=== PATIENT | female | born 1960 | race Caucasian/White ===

== ENCOUNTER 2018-03-12 23:06 | Emergency (ER) | payer OTHER ==
[2018-03-12] MEDS ORDERED: TORAdol 30 mg Injection IM ONE (23:26)
--- NOTE | 2018-03-12 23:26 | ERPHSYRPT ---
- History of Present Illness Time Seen by Provider: 03/12/18 23:21 Source: patient Exam Limitations: no limitations Physician History: The patient is a 58-year-old female who missed a step causing her to fall onto her right foot. This happened about 2 hours ago. The mid part of her right foot is hurting. It hurts for her to walk on it. She did not take Tylenol nor ibuprofen. She did not ice it. There is no numbness or tingling. Her past medical history is unremarkable. Occurred: this evening Reason for Fall: lost balance, fell from standing pos Injuries/Pain Location: lower extremity (right foot) Loss of Consciousness: no loss of consciousness Quality: aching Severity of Pain-Max: moderate Severity of Pain-Current: moderate Modifying Factors: Improves With: nothing Associated Symptoms (Fall): trouble walking Allergies/Adverse Reactions: No Known Drug Allergies Allergy (Verified 03/12/18 23:33) Hx Tetanus, Diphtheria Vaccination/Date Given: Yes (UNKNOWN) Hx Influenza Vaccination/Date Given: No Hx Pneumococcal Vaccination/Date Given: No - Review of Systems Constitutional: No Fever, No Chills Eyes: No Symptoms Ears, Nose, & Throat: No Symptoms Respiratory: No Cough, No Dyspnea Cardiac: No Chest Pain, No Edema, No Syncope Abdominal/Gastrointestinal: No Abdominal Pain, No Nausea, No Vomiting, No Diarrhea Genitourinary Symptoms: No Dysuria Musculoskeletal: Fall, Injury Skin: No Rash Neurological: No Dizziness, No Focal Weakness, No Sensory Changes Psychological: No Symptoms Endocrine: No Symptoms Hematologic/Lymphatic: No Symptoms Immunological/Allergic: No Symptoms All Other Systems: Reviewed and Negative - Past Medical History Pertinent Past Medical History: Yes Respiratory History: Asthma - Past Surgical History Past Surgical History: Yes Musculoskeletal: Orthopedic Surgery Female Surgical History: Hysterectomy, Other - Social History Smoking Status: Never smoker Exposure to second hand smoke: No Drug Use: none Patient Lives Alone: No - Nursing Vital Signs Nursing Vital Signs: Initial Vital Signs Temperature 98.1 F 03/12/18 23:16 Pulse Rate 95 H 03/12/18 23:16 Respiratory Rate 18 03/12/18 23:16 Blood Pressure 169/91 03/12/18 23:16 O2 Sat by Pulse Oximetry 96 03/12/18 23:16 Pain Scale Pain Intensity 10 - [place] Coma Score Best Eye Response ([place]): (4) open spontaneously Best Verbal Response ([place]): (5) oriented Best Motor Response ([place]): (6) obeys commands [place] Total: 15 - Physical Exam General Appearance: no apparent distress, alert Head Injury: no evidence of injury Eye Exam: PERRL/EOMI ENT Exam: airway nml Neck Exam: normal inspection, No tenderness Respiratory/Chest Exam: normal breath sounds, No chest tenderness, No respiratory distress Cardiovascular Exam: normal heart sounds, regular rate/rhythm Gastrointestinal Exam: soft, No tenderness, No distention, No guarding, No ecchymosis Rectal Exam: not done Back Exam: normal inspection, No vertebral tenderness Extremity Exam: pain with movement, weight bearing, tenderness (tenderness to mid lateral right foot) Neurologic Exam: alert, oriented x 3, cooperative, sensation nml, No motor deficits Skin Exam: abrasion (abrasion to right lateral malleolus) SpO2 Interpretation: normal Oxygen Delivery: Room Air - Radiology Exams Right Foot X-ray Interpretation: Interpreted by me, Negative, No Fracture Ordered Tests: Active Orders 24 hr Category Date Time Status Cold Application STAT Care 03/12/18 23:26 Active FOOT (MINIMUM 3 VIEWS) Routine Exams 03/12/18 23:48 Taken Medication Summary Discontinued Medications Generic Name Dose Route Start Last Admin Trade Name Freq PRN Reason Stop Dose Admin Ketorolac Tromethamine 60 mg 03/12/18 23:26 03/12/18 23:30 Toradol 30 Mg Injection IM 03/12/18 23:27 60 mg STAT ONE Administration Ketorolac Tromethamine Confirm 03/12/18 23:29 Toradol 30 Mg Injection Administered 03/12/18 23:30 Dose 60 mg .ROUTE .STK-MED ONE - Progress Progress: improved Counseled pt/family regarding: diagnosis, rad results - Departure Time of Disposition: 23:51 Departure Disposition: Home Clinical Impression: Right foot sprain Condition: Stable Critical Care Time: No Referrals: STEVEN SHANE [Primary Care Provider] - Additional Instructions: You have a sprain of your right foot. The x-ray did not show any broken bones. You were given Toradol 60 mg by IM in the ER. Continue to ice your foot as needed. Take naproxen 500 mg 2 times a day as needed. Follow-up with your primary medical doctor as needed. Prescriptions: Naproxen 500 mg PO BID PRN #30 tablet
[2018-03-12] MEDS ORDERED: TORAdol 30 mg Injection ONE (23:29)
[2018-03-13 00:04] VITALS: BP 147/91; PULSE 92; O2SAT 97
--- NOTE | 2018-03-13 09:55 | XRAY ---
Indication: Pain following fall. Comparison: None 3 nonweightbearing views of the right foot demonstrates small posterior heel spur. No other bony, articular, or soft tissue abnormalities.
== END 2018-03-13 00:06 | disposition home or self-care (01) ==
LOC: ED 23:06
DX: S93.601A Unspecified sprain of right foot, initial encounter (principal); W10.9XXA Fall (on) (from) unspecified stairs and steps, initial encounter
CPT/HCPCS: 73630; 96372; 99284; J1885

== ENCOUNTER 2019-05-19 16:11 | Emergency (ER) | payer OTHER ==
[2019-05-19 16:27] VITALS: O2SAT 98
--- NOTE | 2019-05-19 16:30 | ERPHSYRPT ---
- History of Present Illness Time Seen by Provider: 05/19/19 16:30 Source: patient Exam Limitations: no limitations Patient Subjective Stated Complaint: pt got luz ring embedded in to right 5th digit , she was able to remove in and has two puncture wounds to finger Triage Nursing Assessment: pt alert, waked in, resp easy, skin w/d/p. has two puncture wounds to right 5th digit with scant amount of bleeding,finger pink and warm to touch Physician History: This is a right-handed 59-year-old female who suffered 2 small puncture wounds on her distal right finger prior to arrival. She pinched the soft tissue portion of the distal right fifth digit in her keychain. Initially, there is bleeding present. She arrived with no bleeding present. Patient's tetanus status is not up-to-date. Timing/Duration: today Quality: painful Severity: mild Location: hands (Right distal fifth digit) Possible Causes: other (Pinched with a keychain) Associated Symptoms: denies symptoms Allergies/Adverse Reactions: No Known Drug Allergies Allergy (Verified 05/19/19 16:27) Home Medications: No Reportable Medications [No Reported Medications] 05/19/19 [History] Hx Tetanus, Diphtheria Vaccination/Date Given: Yes Hx Influenza Vaccination/Date Given: No Hx Pneumococcal Vaccination/Date Given: No Immunizations Up to Date: Yes - Review of Systems Constitutional: No Symptoms Eyes: No Symptoms Ears, Nose, & Throat: No Symptoms Respiratory: No Symptoms Cardiac: No Symptoms Abdominal/Gastrointestinal: No Symptoms Genitourinary Symptoms: No Symptoms Musculoskeletal: No Symptoms Skin: Other (2 puncture sites on right distal fifth digit) Neurological: No Symptoms Psychological: No Symptoms Endocrine: No Symptoms - Past Medical History Pertinent Past Medical History: Yes Neurological History: No Pertinent History ENT History: No Pertinent History Cardiac History: No Pertinent History Respiratory History: Asthma Endocrine Medical History: No Pertinent History Musculoskeletal History: No Pertinent History GI Medical History: No Pertinent History History: No Pertinent History Psycho-Social History: No Pertinent History Female Reproductive Disorders: No Pertinent History - Past Surgical History Past Surgical History: Yes Neuro Surgical History: No Pertinent History Cardiac: No Pertinent History Respiratory: No Pertinent History Gastrointestinal: No Pertinent History Genitourinary: No Pertinent History Musculoskeletal: Orthopedic Surgery Female Surgical History: Hysterectomy, Dilation & Curettage Other Surgical History: finger surg - Social History Smoking Status: Never smoker Exposure to second hand smoke: No Drug Use: none Patient Lives Alone: No - Female History Hx Last Menstrual Period: post Hx Now: Yes - Nursing Vital Signs Nursing Vital Signs: Initial Vital Signs Temperature 97.2 F 05/19/19 16:20 Pulse Rate 103 H 05/19/19 16:20 Respiratory Rate 16 05/19/19 16:20 Blood Pressure 174/105 05/19/19 16:20 O2 Sat by Pulse Oximetry 98 05/19/19 16:20 Pain Scale Pain Intensity 6 - Physical Exam General Appearance: no apparent distress, alert Eye Exam: PERRL/EOMI, eyes nml inspection Ears, Nose, Throat Exam: normal ENT inspection, moist mucous membranes Neck Exam: normal inspection, non-tender, supple, full range of motion Respiratory Exam: airway intact, No chest tenderness, No respiratory distress Gastrointestinal/Abdomen Exam: No tenderness Pelvic Exam: not done Rectal Exam: not done Back Exam: normal inspection, normal range of motion, No CVA tenderness, No vertebral tenderness Extremity Exam: lacerations, other (2 puncture sites laterally right fifth digit distally. No active bleeding. No foreign body. Tendon function intact. Neurovascularly intact.) Neurologic Exam: alert, oriented x 3, cooperative, director clinical pharmacology II-XII nml as tested, normal mood/affect, nml cerebellar function, nml station & gait Skin Exam: laceration (See above) SpO2 Interpretation: normal SpO2: 98 O2 Delivery: Room Air Procedures - Laceration/Wound Repair Right Distal Finger Wound Location: Right, hand (Distal fifth digit) Wound Length (cm): 0.3 Wound's Depth, Shape: linear, into subcut Wound Explored: No foreign body noted, evaluation in bloodless field. Irrigated: Yes Hibiclens Prep: Yes Wound Repaired With: Steri-strips, Dermabond Progress: 05/19/19 17:24 The wound site was irrigated with normal saline Hibiclens and cleaned again with Hibiclens solution. There is no bony involvement. It is in the fat pad where the small puncture wounds are present laterally. After discussion with the patient, we opted for benzoin, skin glue, and half-inch Steri-Strips. The patient tolerated the procedure well there were no complications. The nurse placed a pressure dressing on the site. - Course Nursing assessment & vital signs reviewed: Yes Ordered Tests: Medication Summary Discontinued Medications Generic Name Dose Route Start Last Admin Trade Name Nina PRN Reason Stop Dose Admin Diphtheria/Tetanus/Acell Pertussis 0.5 ml 05/19/19 16:54 Adacel Vial IM 05/19/19 16:55 .ONCE ONE - Progress Progress: improved Counseled pt/family regarding: diagnosis - Departure Departure Disposition: Home Clinical Impression: Finger laceration Condition: Stable Critical Care Time: No Referrals: KEIRA COX BEEF PUSHER [Primary Care Provider] - Additional Instructions: Keep current pressure dressing in place until tomorrow evening. Tomorrow evening, you may remove the pressure dressing but leave the Steri-Strips in place until they fall off in approximately 5 to 7 days. After removal of the top pressure dressing, may wash daily. Use Tylenol and ibuprofen for pain. Follow-up with your primary care physician as needed
[2019-05-19] MEDS ORDERED: Adacel Vial IM ONE (17:23)
[2019-05-19] MEDS: Adacel Vial IM ONE (17:25)
[2019-05-19 17:31] VITALS: BP 163/94; PULSE 91
== END 2019-05-19 17:43 | disposition home or self-care (01) ==
LOC: ED 16:11
DX: S61.210A Laceration without foreign body of right index finger without damage to nail, initial encounter (principal); W22.8XXA Striking against or struck by other objects, initial encounter
CPT/HCPCS: 12001; 90471; 90715; 99283

== ENCOUNTER 2019-12-07 07:58 | Day surgery (SDC) | payer OTHER ==
[~2019-12-07 07:58] MED LIST: Ak-Dilate OPHTHALMIC*** 1.065 ML, Cyclogyl 1% OPHTH SOL 5 ML 1.065 ML, GATIFLOXACIN 0.5... OP ONE; DIPRIVAN 200 MG/20 ML IV ONE; Lactated Ringers 1,000 ML IV SCH; NON-FORMULARY ITEM IJ ONE; TETRACAINE 0.5% STERI-UNIT SOL OP ONE
[2019-12-07] MEDS ORDERED: LIDOCAINE HCL 1% 50 MG/5 ML VL PF IJ ONE (07:59)
[2019-12-07] MEDS ORDERED: Epinephrine Preservative Free 1 MG/ML IJ ONE (07:59)
[2019-12-07] MEDS ORDERED: BETADINE 5% OPHTHALMIC 30 ML OP ONE (07:59)
[2019-12-07] MEDS ORDERED: Lactated Ringers 1,000 ML IV ONE (08:17)
[2019-12-07] MEDS ORDERED: ACETAZOLAMIDE 250 MG TABLET PO ONE (09:00)
[2019-12-07] MEDS ORDERED: Zofran 4 MG/2 ML VIAL IV PRN (09:00)
[2019-12-07] MEDS ORDERED: cefUROXime sodium 0.005 GM in Sodium Chloride Flush 30 ML*** 0.5 ML IJ SCH (09:00)
[2019-12-07 11:10] VITALS: O2SAT 99
[2019-12-07 11:14] VITALS: BP 149/96; PULSE 84
--- NOTE | 2019-12-08 11:19 | OP ---
DATE/TIME OF OPERATION: 12/07/2019 1017 TIME DICTATED: 12/07/2019 1314 PREOPERATIVE DIAGNOSIS: Senile cataract of left eye. POSTOPERATIVE DIAGNOSIS: Senile cataract of left eye. SURGEON: Zunilda Mae MD DELIVERY AND INSTALLATION SUBCONTRACTOR: NONE OPERATION: Cataract extraction of left eye with an intraocular lens implant STANDARD __X___ COMPLEX ANESTHESIA: ___X___ Monitored anesthesia care in combination with topical and intra-cameral anesthesia (because of the established specific risk of reflux, arrhythmias, or an anxiety attack associated with ocular manipulation as well as difficulty of the biomedical manager to manage such potentially catastrophic events while simultaneously attempting to complete the surgical procedure, it was deemed necessary for the patient's safety to have an anesthesiologist or a nurse caustic operator present during the procedure whenever possible. The anesthesiologist or the nurse caustic operator was utilized to monitor and regulate the intravenous sedation of the patient, so the patient was cooperative, relaxed, and comfortable). Topical anesthesia using Tetracaine eye drops together with intra cameral anesthesia using Lidocaine 1% MPF. The nurse was utilized to monitor the patient. ANESTHESIA PROVIDER: Ivan Ornelas CRNA. COMPLICATIONS: None. BLOOD LOSS: None INDICATIONS: The patient is undergoing cataract surgery in the hopes of eliminating the visual complaints and difficulty. PROCEDURE: After arriving at the facility's outpatient surgery area, an IV was started; the patient was given 5 mg of p.o. Versed. (If an anesthesia provider was not monitoring the patient) The patient was then given topical anesthetic Tetracaine eye drops. A cotton pellet was soaked into a solution of a combination of Zymaxid 0.5%, Sanjeev-Synephrine 2.5% and Ocufen (other drops might have been substituted referenced in the patient's record). The pellet was inserted by the RN into the lower conjunctival cul-de-sac with a sterile forceps and left for 20 minutes. The pellet was then removed by the RN with a sterile forceps before taking the patient to the operating room. The preoperative area nurse identified the patient and marked the correct eye to be operated on. I identified the correct eye to be operated on and marked it appropriately in the outpatient surgery area. The patient was then taken into the operating room. Tetracaine eye drops were installed again in the correct eye. The eyelids and the lashes and the lid margins were scrubbed with Betadine solution. One drop of the diluted Betadine solution was placed in the conjunctival cul-de-sac for 45 seconds and then was irrigated. A drop of Tetracaine Gel was placed in the conjunctival cul-de-sac. The patient's forehead was taped to secure it during the procedure. The patient was monitored. The patient was then draped in the usual way for this procedure. An eye speculum was used to separate the eyelids. The eye was then fixated and a temporal 2.5 mm incision was made in the clear cornea temporally at the limbus. Through the incision, 0.25 cc of 1% non-preserved lidocaine was injected into the anterior chamber for intracameral anesthesia. The anterior chamber was then filled with viscoelastic. The pupil was small. I felt that it would be safer to mechanically dilate the pupil. A Malyugin ring was used at this point which dilated the pupil. That was removed at the end of the procedure prior to aspiration of the viscoelastic from the anterior chamber and posterior to the intraocular lens implant. The cataract had a great amount of cortical changes. That rendered seeing the anterior capsule difficult for a safe performance of an anterior capsulotomy. I injected an air bubble into the anterior chamber. I then injected 1 ML of vision blue solution into the anterior chamber. The vision blue solution was irrigated from the anterior chamber after 30 seconds. The anterior capsule was stained which facilitated performing the anterior capsulotomy safely. After that was completed, a cystotome was introduced into the anterior chamber and a round anterior capsulotomy was performed. The capsule was removed by a forceps. Hydrodissection was next carried utilizing a 25-gauge cannula and balanced salt solution to delineate the cortical material from the capsule and the nucleus from the cortical material. The nucleus was rotated freely into the capsular bag with no difficulty. The phaco tip of the [employer] Phacoemulsifier was introduced into the anterior chamber and two grooves were made into the nucleus 90 degrees apart. Using two spatulas resulted into the nucleus being fractured into four quadrants. The phaco tip was then used to remove each quadrant of the nucleus. Viscoelastic was used during this process to protect the corneal endothelium. Once the entire nucleus was removed, the phaco tip then was removed and the irrigation tip was introduced into the eye and the cortex was removed. The posterior capsule was polished. It was noticed that there was a tear into the posterior capsule with few vitreous strands into the pupil plan. An anterior vitrectomy was performed. A 19.50 diopter, [id number], posterior chamber lens implant, was inspected and found to be grossly normal. The implant was inserted into the implant injector cartridge; Viscoelastic again was introduced into the anterior chamber, which filled the capsular bag. The implant injector's cartridge tip was placed at the limbal wound and the posterior chamber implant was released into the capsular bag and rotated appropriately. The implant was found to be into the capsular bag and it was centered. __X___ 0.2 ml of Tri-Moxi was introduced via 27 gauge cannula into the vitreous cavity through the ciliary processes. Viscoelastic was aspirated from the anterior chamber and posterior to the intraocular lens implant from the capsular bag using the irrigating tip. The anterior chamber was irrigated and filled with 5 cc antibiotic solution (500 cc of BSS plus 2 ml of Fortaz 100 mg/ml) ( if patient was not allergic to the medication). The lips of the corneal incision were hydrated using BSS solution. The anterior chamber was checked and found to be water tight. One drop each of antibiotic, steroid and NSAID drops (refer to chart for drops used) were placed in the conjunctival cul-de-sac of the operated eye. Patient tolerated the procedure quite well and left the operating room in satisfactory condition. NOTE: At the end of the procedure right before the end of the procedure, 1 mg into 0.1 ml of Cefuroxime was introduced into the anterior chamber posterior to the intraocular lens implant. DISCHARGE SUMMARY: The patient was released in stable condition. The patient and those with the patient were given an instruction sheet as of how to care for the eye after surgery as well as counseling on any abnormal laboratory studies by the postoperative RN. The patient was also given an appointment card for follow-up in the office and is to call immediately for any difficulties including but not limited to pain in the eye, decreased vision, discharge from the eye, headache and or fever. DISCHARGE DIAGNOSIS: Pseudophakia of left eye
== END 2019-12-07 11:25 | disposition home or self-care (01) ==
LOC: SDC 07:58
PROVIDERS: ATTEND Ophthalmology
DX: H25.812 Combined forms of age-related cataract, left eye (principal)
CPT/HCPCS: C1780; J0171; J2001; J2704; A9270-GY

== ENCOUNTER 2019-12-24 10:27 | Emergency (ER) | payer OTHER ==
[2019-12-24] MEDS ORDERED: TYLENOL EXTRA STRENGTH 500 MG PO STA (10:47)
[2019-12-24] MEDS ORDERED: TYLENOL EXTRA STRENGTH 500 MG ONE (10:58)
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
[2019-12-24 11:45] VITALS: BP 170/95; PULSE 94
[2019-12-24 11:47] VITALS: O2SAT 98
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
== END 2019-12-24 11:53 | disposition home or self-care (01) ==
LOC: ED 10:27
DX: R03.0 Elevated blood-pressure reading, without diagnosis of hypertension (principal); R51.9 Headache, unspecified; V89.2XXA Person injured in unspecified motor-vehicle accident, traffic, initial encounter
CPT/HCPCS: 70450; 71046; 72125; 99284; A9270-GY

== ENCOUNTER 2022-09-20 05:54 | Day surgery (SDC) | payer OTHER ==
[2022-09-20] MEDS: Lactated Ringers 1,000 ML IV SCH (06:55)
[2022-09-20] MEDS ORDERED: Xylocaine-Mpf 2% 5 Ml Vial ONE (07:38)
[2022-09-20] MEDS ORDERED: Versed 2 MG/2 ML Injection ONE (07:38)
[2022-09-20] MEDS ORDERED: DIPRIVAN 200 MG/20 ML IV ONE ×2 (07:39→07:47)
--- NOTE | 2022-09-20 08:23 | OP ---
SURGERY DATE/TIME: 09/20/2022 [id number] PREOPERATIVE DIAGNOSIS: Screening exam. POSTOPERATIVE DIAGNOSIS: Mild diverticulosis otherwise normal colon. PROCEDURE: Colonoscopy. SURGEON: Dr. Ashley. ANESTHESIA: MAC. Medications given by anesthesia department. HISTORY: The patient is a 62-year-old white female who reports now for colonoscopy. She reports she has never had a screening one performed. The patient also has had some abdominal discomfort. She had an upper GI, HIDA scan and ultrasound which were unrevealing. The patient reports she had this abdominal discomfort for the past six months. There has been no blood in the stool. No mucus. No particular change in the bowel habits. The patient is felt to need to have endoscopic evaluation. She was appraised of the risks of the procedure including the risk of perforation, phlebitis, untoward reaction to medication, bleeding and missed lesions. The patient verbalized her understanding and desired to have the procedure performed. DESCRIPTION OF PROCEDURE: The patient was given the medications by the anesthesia department. She had continuous pulse oximetry, ECG monitoring and intermittent blood pressure monitoring during the examination. She was placed in the left lateral decubitus position. A digital rectal examination was performed and revealed normal anal sphincter tone and no masses. The flexible Olympus pediatric colonoscope was used to intubate the rectum. A view of the colon was developed sequentially to the cecum including a short distance in the terminal ileum. Upon insertion and withdrawal including a retroflex view in the rectum was noted mild diverticula. There was also noted some black particulate matter and black liquid stool this is suctioned and sent to the pathology department to rule out occult blood otherwise no other problems were noted. The scope was removed from the patient who tolerated the procedure well and was sent back to OP recovery in good condition. The prep was noted to be fair to good.
[2022-09-20 08:42] VITALS: O2SAT 99
[2022-09-20 08:49] VITALS: BP 166/91; PULSE 90
[2022-09-20 13:33] LABS: IFOB TEST RESULTS NEGATIVE (NEGATIVE)
== END 2022-09-20 08:55 | disposition home or self-care (01) ==
LOC: SDC 05:54
PROVIDERS: ATTEND Family Medicine
DX: Z12.11 Encounter for screening for malignant neoplasm of colon (principal); K57.30 Diverticulosis of large intestine without perforation or abscess without bleeding
CPT/HCPCS: 82274; J2250; J2704; G0328

== ENCOUNTER 2024-01-05 05:47 | Day surgery (SDC) | payer OTHER ==
[2024-01-05] MEDS: Transderm Scop 1.5MG Patch TOP PRN (06:20)
[2024-01-05] MEDS: Pepcid 20 MG VIAL IV ONE (06:20)
[2024-01-05] MEDS: Lactated Ringers 1,000 ML IV SCH (06:20)
[2024-01-05] MEDS: CEFAZOLIN 2 GM/100 ML NaCl 2 GM/100 ML IVPB IV SCH (06:21)
[2024-01-05 06:40] VITALS: BP 151/81; PULSE 85; RESP 18; TEMP 97.1; O2SAT 99
[2024-01-05] MEDS: Reglan 10 MG/2 ML IV ONE (06:49)
== END 2024-01-05 07:30 | disposition home or self-care (01) ==
LOC: SDC 05:47
PROVIDERS: ATTEND Orthopaedic Surgery
DX: Z53.8 Procedure and treatment not carried out for other reasons (principal)
CPT/HCPCS: J0690; A9270-GY

== ENCOUNTER 2024-01-30 05:52 | Day surgery (SDC) | payer OTHER ==
[2024-01-30] MEDS ORDERED: Transderm Scop 1.5MG Patch ONE (06:13)
[2024-01-30] MEDS ORDERED: Pepcid 20 MG VIAL IV ONE (06:13)
[2024-01-30] MEDS ORDERED: Reglan 10 MG/2 ML ONE (06:13)
[2024-01-30] MEDS ORDERED: CEFAZOLIN 2 GM/100 ML NaCl 2 GM/100 ML IVPB IV ONE (06:13)
[2024-01-30] MEDS ORDERED: Lactated Ringers 1,000 ML IV ONE (06:13)
[2024-01-30 06:40] VITALS: RESP 16; TEMP 98
[2024-01-30] MEDS ORDERED: Pepcid 20 MG PO ONE (06:52)
[2024-01-30] MEDS: Transderm Scop 1.5MG Patch TOP PRN (06:54)
[2024-01-30] MEDS: Reglan 10 MG/2 ML IV ONE (06:55)
[2024-01-30] MEDS: Pepcid 20 MG VIAL IV ONE (07:00)
[2024-01-30] MEDS: Lactated Ringers 1,000 ML IV SCH (07:01)
[2024-01-30] MEDS: CEFAZOLIN 2 GM/100 ML NaCl 2 GM/100 ML IVPB IV SCH (07:03)
[2024-01-30] MEDS ORDERED: MARCAINE 0.5%-EPI 1:200,000 VL IJ ONE (07:16)
[2024-01-30] MEDS ORDERED: TORAdol 30 mg Injection ONE (07:53)
[2024-01-30] MEDS ORDERED: Zofran 4 MG/2 ML VIAL ONE (07:53)
[2024-01-30] MEDS ORDERED: Decadron 4 MG INJ ONE (07:53)
[2024-01-30] MEDS ORDERED: DIPRIVAN 200 MG/20 ML IV ONE (07:53)
[2024-01-30] MEDS ORDERED: Xylocaine-Mpf 2% 5 Ml Vial ONE (07:53)
[2024-01-30] MEDS ORDERED: SUBLIMAZE 100 MCG/2 ML ONE (07:54)
[2024-01-30] MEDS ORDERED: Versed 2 MG/2 ML Injection ONE (07:54)
[2024-01-30] MEDS ORDERED: Ephedrine Sulfate 50 MG/ML ONE (08:10)
[2024-01-30] MEDS ORDERED: DEXMEDETOMIDINE 80 MCG/20ML-NS IV ONE (08:21)
[2024-01-30 09:37] VITALS: BP 118/75; PULSE 81; O2SAT 100
--- NOTE | 2024-02-01 18:33 | OP ---
SURGERY DATE/TIME: 01/30/2024 [id number] PREOPERATIVE DIAGNOSES: Torn right medial meniscus, chondromalacia of patella. 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 PROCEDURES: Arthroscopy of the right knee with partial medial meniscectomy; chondroplasty patella, medial femoral condyle and tibial plateau. SURGEON: Favio Bello II, DO. ANESTHESIA: General. DESCRIPTION OF PROCEDURE AND FINDINGS: The patient was identified and informed consent was obtained. The patient was taken to the operative suite and placed into the supine position on the operating table where the general anesthetic was administered. Once an appropriate level of anesthesia had been obtained, a tourniquet was then placed high on the right thigh and the right lower extremity was then placed into the knee lafleur. The right lower extremity was then prepped and draped in the usual sterile fashion. A standard time-out was taken. The leg was exsanguinated and the tourniquet elevated to 350 mmHg. A standard superomedial portal was created with an 11 blade and the trocar and cannula were placed in the joint. The joint was distended with the arthroscopic pump. An inferolateral portal was created with an 11 blade and the arthroscope was then placed in through a cannula. An 18-gauge spinal needle identified the level for the inferomedial portal which was then created with an 11 blade as well. The knee was then inspected in a systematic fashion beginning in the suprapatellar pouch where there is noted to be some mild synovial hypertrophy and reactive synovitis, which was shaved with the full-radius shaver. The undersurface of the patella was noted to have some grades 2 and 3 chondromalacia, and a chondroplasty was performed on the patella. Gutters were inspected. No loose bodies or significant synovial hypertrophy. The scope was then placed into the medial compartment where a complex tear involving the middle and posterior horns of the medial meniscus was encountered, resected with the handheld biting instruments and shaved to a smooth transition with the shaver. Chondroplasty was performed on the medial femoral condyle and tibial plateaus. The patient was noted to have grades 2 and 3 chondromalacia changes. Intercondylar notch region was inspected and the anterior cruciate ligament was noted to be intact. There was no evidence of attenuation or tears. The scope was then placed in the lateral compartment where the lateral meniscus was firm throughout its entirety and noted to be intact. Medial femoral condyle and tibial plateau had no chondromalacia or degenerative changes noted. The knee was then reinspected and copiously irrigated. No further pathology identified. The instrumentation removed and the portal sites closed with interrupted 4-0 nylon suture. The knee was infiltrated with 30 mL of 0.25% Marcaine with epinephrine into the joint and portal sites. Adaptics, 4 x 4's and a sterile dressing applied. The patient was then transferred to the cart and taken to the recovery room in satisfactory condition having tolerated the procedure well.
== END 2024-01-30 09:50 | disposition home or self-care (01) ==
LOC: SDC 05:52
PROVIDERS: ATTEND Orthopaedic Surgery
DX: S83.241A Other tear of medial meniscus, current injury, right knee, initial encounter (principal); M22.41 Chondromalacia patellae, right knee; M25.561 Pain in right knee; E11.9 Type 2 diabetes mellitus without complications
CPT/HCPCS: 29881; 82947; J0690; J1100; J1885; J2250; J2405; J2704; J3010; A9270-GY